=== PATIENT | male | born 1955 | race Caucasian/White ===

== ENCOUNTER 2022-05-17 11:45 | Oncology outpatient (recurring) (ONCR) | payer MEDICARE, SELFPAY | END 2022-05-22 23:59 | disposition home or self-care (01) | PROVIDERS: Visit Provider Internal Medicine Hematology & Oncology | DX: Z53.9 Procedure and treatment not carried out, unspecified reason (principal) ==

== ENCOUNTER 2022-06-21 08:09 | Oncology outpatient (recurring) (ONCR) | payer MEDICARE, SELFPAY | END 2022-06-22 23:59 | disposition home or self-care (01) | PROVIDERS: PCP Family Medicine; Visit Provider Internal Medicine Hematology & Oncology | DX: C61 Malignant neoplasm of prostate (principal); R97.21 Rising PSA following treatment for malignant neoplasm of prostate; M89.9 Disorder of bone, unspecified | CPT/HCPCS: 36415; 84153; 99214 ==

== ENCOUNTER 2022-07-19 10:36 | Oncology outpatient (recurring) (ONCR) | payer MEDICARE, SELFPAY ==
--- NOTE | 2022-07-08 09:39 | N.ONRAD NP_ITS ---
Radiation Oncology Consultation Patient Name: Sabino Murry Date of : 1955 Date of Service: 07/08/2022 Attending Physician: Danial Patterson M.D. Sabino Murry was seen in consultation this morning at the request of Cecily Cheng M.D. for consideration of palliative radiotherapy for the management of metastatic prostate cancer. The patient was diagnosed in July of 2017 following evaluation for massively increasing PSA levels. A robotic laparoscopic prostatectomy performed on September 29, 2017. An adenocarcinoma of the prostate was identified with a [place] score of 8 without high risk features present. Adjuvant radiotherapy with short-term androgen deprivation therapy were administered as a consequence of a persistent PSA level. A PSA level obtained in February of 2022 was 3.6 ng/mL. ADT was offered but the patient declined. A PSMA-PET/CT scan (independently reviewed in [facility]) ordered on June 14, 2022 described marked tracer activity within the left iliac bone with sclerosis noted on CT imaging. A recent PSA level was 10.3 ng/mL. Patient was evaluated for stereotactic ablative body radiotherapy to metastatic deposit. I discussed with Mr. Murry the role for SABR for oligometastatic disease. I also reviewed the SABR-COMET trial that enrolled patients with a controlled primary malignancy and 1-5 metastatic lesions to SABR or palliative standard of care. This radiotherapy modality provided a 22-month median overall survival benefit in comparison to palliative management. I anticipate an ultra-hypofractionated course of stereotactic radiotherapy. A computed tomographic radiotherapy planning will be acquired and co-registered to the patient's PSMA-PET scan to identify the gross tumor volume. The potential toxicities of stereotactic body radiotherapy were canvassed. The patient has verbalized understanding and would like to proceed as recommended. His medical treatment plan was discussed with Cecily Cheng M.D. Signed by: Dr. Danial Patterson 07/08/2022 9:38:17 AM
[2022-07-08] MEDS: leuprolide 22.5 mg Kit IM (10:27)
[2022-07-08] MEDS: denosumab 120 mg SDV SUBCUT (10:27)
[2022-07-08 12:07] VITALS: BP 102/77; PULSE 66; RESP 16; TEMP 36.4; O2SAT 98
--- NOTE | 2022-07-14 | CT_ITS ---
Radiation Therapy Planning CT images; total exam DLP: 1202.75 mGy-cm MTDD
--- NOTE | 2022-07-19 11:28 | N.ONRD TS_ITS ---
SABR Treatment Summary Patient Name: Sabino Murry Date of : 1955 Date of Service: 07/19/2022 Attending Physician: Danial Patterson M.D. Sabino Murry has completed stereotactic ablative body radiotherapy for the management of metastatic prostate cancer. The patient was diagnosed in July of 2017 following evaluation for massively increasing PSA levels. A robotic laparoscopic prostatectomy performed on September 29, 2017. An adenocarcinoma of the prostate was identified with a Daryl score of 8 without high risk features present. Adjuvant radiotherapy with short-term androgen deprivation therapy were administered as a consequence of a persistent PSA level. A PSA level obtained in February of 2022 was 3.6 ng/mL. ADT was offered but the patient declined. A PSMA-PET/CT scan ordered on June 14, 2022 described marked tracer activity within the left iliac bone with sclerosis noted on CT imaging. A recent PSA level was 10.3 ng/mL. Daily radiotherapy was administered on July 19, 2022. A prescribed dose of 20 Gy was delivered in 1 fraction encompassing 1 elapsed day. The sclerotic left ileal lesion was treated utilizing a 3-dimensional conformal radiotherapy plan with MACEDONIAN, LPO, and PA ports. The MACEDONIAN field utilized a 60??? gantry angle with a collimator angle of 0???. The field size measured 4 cm x 4 cm within the X-direction and 4 cm x 4 cm within the Y-direction. The SSD measured 87.2 cm with the field delivering 1058 monitor units. The LPO port employed a gantry angle of 120??? and a collimator angle of 0???. The field size was 4 cm x 4 cm within X-direction and 4 cm x 4 cm within the Y-direction. The SSD was 87.5 cm with the field allocating 593 monitor units. The PA field was designed with a gantry angle of 180??? with a collimator angle of 0???. The measured field size was 4 cm x 4 cm within the X direction and 4 cm x 4 cm within the Y-direction. The measured SSD was 89.2 cm with the field apportioning 937 monitor units. All treatments were performed with the Yotomo linear accelerator and an isocentric technique. The dose was calculated by Anisotropic Analytic Algorithm. A photon energy of 15 MV was prescribed with the plan normalized to deliver 100% of the prescription dose to 100% of the planning target volume. Signed by: Dr. Danial Patterson 07/19/2022 11:26:34 AM
--- NOTE | 2022-07-19 11:37 | ONCRAD TMN_ITS ---
SABR Treatment Management Note Patient Name: Sabino Murry Date of : 1955 Date of Service: 07/19/2022 Attending Physician: Danial Patterson M.D. Sabino Murry is a 67 year-old white male diagnosed with metastatic prostate cancer. The patient was diagnosed in July of 2017 following evaluation for massively increasing PSA levels. A robotic laparoscopic prostatectomy performed on September 29, 2017. An adenocarcinoma of the prostate was identified with a Daryl score of 8 without high risk features present. Adjuvant radiotherapy with short-term androgen deprivation therapy were administered as a consequence of a persistent PSA level. A PSA level obtained in February of 2022 was 3.6 ng/mL. ADT was offered but the patient declined. A PSMA-PET/CT scan ordered on June 14, 2022 described marked tracer activity within the left iliac bone with sclerosis noted on CT imaging. A recent PSA level was 10.3 ng/mL. The patient has received 20 Gy of a prescribed 20 Healy (SABR) delivered with a 3-dimensional conformal radiotherapy plan utilizing DIVEHI, LPO, and PA ports. Upon review of systems, he denied any new symptoms. On physical examination, the patient weighed 256 lbs. His temperature was 97.8 ???F and the blood pressure was 140/83 mmHg. The pulse was 96 bpm and his respiratory rate was 18. There was no erythema within the treatment norman. Stereotactic ablative body radiotherapy was completed today. He will return for post-radiotherapy evaluation in 1 month. Signed by: Dr. Danial Patterson 07/19/2022 11:35:29 AM
== END 2022-07-22 23:59 | disposition home or self-care (01) ==
PROVIDERS: PCP Family Medicine; Visit Provider Radiology Radiation Oncology
DX: C61 Malignant neoplasm of prostate; C79.51 Secondary malignant neoplasm of bone; R97.21 Rising PSA following treatment for malignant neoplasm of prostate; Z51.0 Encounter for antineoplastic radiation therapy
CPT/HCPCS: 77290; 77295; 77300; 77334; 77336; 77373; 77470; 96372; 96402; 99205; J0897; J9217

== ENCOUNTER 2022-08-10 12:29 | Oncology outpatient (recurring) (ONCR) | payer MEDICARE, SELFPAY ==
[2022-08-10 12:48] LABS: Basophils % 0.7 %; Eosinophils # 0.2 10^3/uL (0.0-0.8); Eosinophils % 3.7 %; Hematocrit 41.3 % (42.0-52.0); Hemoglobin 14.1 g/dL (11.7-16.6); Lymphocytes # 1.4 10^3/uL (0.8-4.8); Lymphocytes % 33.7 %; Mean Corpuscular HGB Conc 34.1 g/dL (30.0-36.0); Mean Corpuscular Hemoglobin 32.5 pg (28.0-34.0); Mean Corpuscular Volume 95.2 fl (80-94); Mean Platelet Volume 10.1 fL (7.4-10.4); Monocytes # 0.3 10^3/uL (0.2-0.9); Monocytes % 7.8 %; Neutrophils % 53.9 %; Nucleated Red Blood Cells % 0 %; Platelet Count 209 10^3/cmm (130-400); Red Blood Count 4.34 10^6/uL (4.1-5.3); Red Cell Distribution Width 12.7 % (12.1-15.1); White Blood Count 4.1 10^3/uL (4.0-10.0)
[2022-08-10 13:24] LABS: Alanine Aminotransferase 29 U/L (0-41); Albumin Level 4.4 g/dL (3.5-5.2); Alkaline Phosphatase 76 U/L (40-130); Anion Gap 15.9 (5-19); Aspartate Amino Transferase 24 U/L (0-40); Blood Urea Nitrogen 15 mg/dL (8-23); Calcium 8.9 mg/dL (8.5-10.5); Carbon Dioxide 27 mmol/L (22-29); Chloride 98 mmol/L (98-107); Globulin 2.9 g/dL (1.3-4.6); Glomerular Filtration Rate 83.7 mL/min (90-130); Glucose 166 mg/dL (65-115); Osmolality Calculated 289 mOsm/kg (285-295); Potassium 3.9 mmol/L (3.5-5.1); Sodium 137 mmol/L (136-145); Testosterone Total 2.5 ng/dL (193-740); Total Bilirubin 0.9 mg/dL (0.15-1.2); Total Protein 7.3 g/dL (6.6-8.7)
== END 2022-08-22 23:59 | disposition home or self-care (01) ==
PROVIDERS: Internal Medicine Hematology & Oncology; PCP Family Medicine; Visit Provider Radiology Radiation Oncology
DX: Z79.818 Long term (current) use of other agents affecting estrogen receptors and estrogen levels (principal); C61 Malignant neoplasm of prostate; C79.51 Secondary malignant neoplasm of bone; Z79.899 Other long term (current) drug therapy
CPT/HCPCS: 80053; 84153; 84403; 85025; 99214

== ENCOUNTER 2022-09-02 16:21 | Outpatient (CLI) | payer MEDICARE, SELFPAY ==
--- NOTE | 2022-09-02 | US_ITS ---
WS: [id number] Limited abdomen ultrasound. HISTORY: Umbilical hernia. Ultrasound is directed to the anterior abdominal wall. In the umbilical and periumbilical area no herniation is identified at this time. No peristalsing loo ps of bowel external to the peritoneal cavity. No mass identified. US/US abdomen limited [id number] IMPRESSION: No umbilical or periumbilical hernia identified at this time.
== END 2022-09-02 16:22 | disposition home or self-care (01) ==
LOC: RAD 16:21
PROVIDERS: PCP Family Medicine; Visit Provider Family Medicine
DX: K42.9 Umbilical hernia without obstruction or gangrene (principal)
CPT/HCPCS: 76705

== ENCOUNTER 2022-09-30 08:13 | Oncology outpatient (recurring) (ONCR) | payer MEDICARE, SELFPAY ==
[2022-09-30 09:03] LABS: Basophils # 0.1 10^3/uL (0.0-0.1); Basophils % 0.9 %; Eosinophils # 0.4 10^3/uL (0.0-0.8); Eosinophils % 6.1 %; Hematocrit 40.4 % (42.0-52.0); Hemoglobin 13.4 g/dL (11.7-16.6); Lymphocytes # 1.8 10^3/uL (0.8-4.8); Lymphocytes % 28.6 %; Mean Corpuscular HGB Conc 33.2 g/dL (30.0-36.0); Mean Corpuscular Hemoglobin 32.4 pg (28.0-34.0); Mean Corpuscular Volume 97.6 fl (80-94); Mean Platelet Volume 10.4 fL (7.4-10.4); Monocytes # 0.6 10^3/uL (0.2-0.9); Monocytes % 9.1 %; Neutrophils # 3.52 10^3/uL (1.8-7.7); Nucleated Red Blood Cells % 0 %; Platelet Count 269 10^3/cmm (130-400); Red Blood Count 4.14 10^6/uL (4.1-5.3); White Blood Count 6.4 10^3/uL (4.0-10.0)
[2022-09-30 09:35] LABS: Alanine Aminotransferase 28 U/L (0-41); Albumin Level 4.2 g/dL (3.5-5.2); Alkaline Phosphatase 75 U/L (40-130); Anion Gap 15.9 (5-19); Aspartate Amino Transferase 23 U/L (0-40); Blood Urea Nitrogen 17 mg/dL (8-23); Calcium 9.6 mg/dL (8.5-10.5); Carbon Dioxide 28 mmol/L (22-29); Chloride 101 mmol/L (98-107); Globulin 3.3 g/dL (1.3-4.6); Glomerular Filtration Rate 95.8 mL/min (90-130); Glucose 140 mg/dL (65-115); Osmolality Calculated 296 mOsm/kg (285-295); Potassium 3.9 mmol/L (3.5-5.1); Prostate Specific Antigen 0.082 ng/mL (0-4); Sodium 141 mmol/L (136-145); Testosterone Total 2.5 ng/dL (193-740); Total Bilirubin 0.4 mg/dL (0.15-1.2); Total Protein 7.5 g/dL (6.6-8.7)
[2022-09-30] MEDS: denosumab 120 mg SDV SUBCUT (09:54)
[2022-09-30] MEDS: leuprolide 22.5 mg Kit IM (09:55)
== END 2022-10-22 23:59 | disposition home or self-care (01) ==
PROVIDERS: Internal Medicine Hematology & Oncology; PCP Family Medicine; Visit Provider Radiology Radiation Oncology
DX: C61 Malignant neoplasm of prostate (principal); C79.51 Secondary malignant neoplasm of bone; Z79.818 Long term (current) use of other agents affecting estrogen receptors and estrogen levels; Z79.899 Other long term (current) drug therapy; Z92.3 Personal history of irradiation; R73.9 Hyperglycemia, unspecified
CPT/HCPCS: 80053; 84153; 84403; 85025; 96372; 96402; 99214; J0897; J9217

== ENCOUNTER → 2022-12-26 11:58 | Outpatient (BNVA) | payer MEDICARE, SELFPAY | PROVIDERS: PCP Family Medicine; Visit Provider Internal Medicine Pulmonary Disease | DX: G47.33 Obstructive sleep apnea (adult) (pediatric) (principal); J45.909 Unspecified asthma, uncomplicated; J82.83 Eosinophilic asthma | CPT/HCPCS: 99204 ==

== ENCOUNTER 2023-01-06 08:25 | Oncology outpatient (recurring) (ONCR) | payer MEDICARE, SELFPAY ==
[2023-01-06 08:48] LABS: Basophils # 0.1 10^3/uL (0.0-0.1); Basophils % 1.1 %; Eosinophils # 0.5 10^3/uL (0.0-0.8); Hematocrit 35.2 % (42.0-52.0); Hemoglobin 11.4 g/dL (11.7-16.6); Lymphocytes # 1.7 10^3/uL (0.8-4.8); Lymphocytes % 36.1 %; Mean Corpuscular HGB Conc 32.4 g/dL (30.0-36.0); Mean Corpuscular Hemoglobin 31.6 pg (28.0-34.0); Mean Corpuscular Volume 97.5 fl (80-94); Mean Platelet Volume 9.6 fL (7.4-10.4); Monocytes # 0.5 10^3/uL (0.2-0.9); Monocytes % 9.8 %; Neutrophils # 1.99 10^3/uL (1.8-7.7); Neutrophils % 42.6 %; Nucleated Red Blood Cells % 0 %; Platelet Count 285 10^3/cmm (130-400); Red Blood Count 3.61 10^6/uL (4.1-5.3); Red Cell Distribution Width 14.1 % (12.1-15.1); White Blood Count 4.7 10^3/uL (4.0-10.0)
[2023-01-06 09:13] LABS: Alanine Aminotransferase 17 U/L (0-41); Albumin Level 4.1 g/dL (3.5-5.2); Alkaline Phosphatase 92 U/L (40-130); Aspartate Amino Transferase 21 U/L (0-40); Blood Urea Nitrogen 18 mg/dL (8-23); Calcium 8.8 mg/dL (8.5-10.5); Carbon Dioxide 27 mmol/L (22-29); Chloride 106 mmol/L (98-107); Globulin 2.9 g/dL (1.3-4.6); Glomerular Filtration Rate 111.8 mL/min (90-130); Glucose 134 mg/dL (65-115); Osmolality Calculated 304 mOsm/kg (285-295); Sodium 145 mmol/L (136-145); Testosterone Total 2.5 ng/dL (193-740); Total Bilirubin 0.4 mg/dL (0.15-1.2)
[2023-01-06 09:21] LABS: Prostate Specific Antigen < 0.014 ng/mL (0-4)
[2023-01-06 09:22] LABS: Anion Gap 16.1 (5-19); Potassium 4.1 mmol/L (3.5-5.1)
[2023-01-06 12:28] LABS: Ferritin 237 ng/mL (30-400); Iron 46 ug/dL (59-158); Percent Saturation 17.1 % (20-50); Total Iron Binding Capacity 269 mcg/dl; Unsaturated Iron Binding 223 ug/dL (112-347)
[2023-01-06] MEDS: leuprolide 22.5 mg Kit IM (12:30)
[2023-01-06] MEDS: denosumab 120 mg SDV SUBCUT (12:30)
[2023-01-06 12:56] LABS: Vitamin B12 > 2000 pg/mL (232-1245)
== END 2023-01-20 23:59 | disposition home or self-care (01) ==
PROVIDERS: Internal Medicine Hematology & Oncology; PCP Family Medicine; Visit Provider Radiology Radiation Oncology
DX: C61 Malignant neoplasm of prostate (principal); C79.51 Secondary malignant neoplasm of bone; Z96.651 Presence of right artificial knee joint; Z79.899 Other long term (current) drug therapy; Z79.818 Long term (current) use of other agents affecting estrogen receptors and estrogen levels
CPT/HCPCS: 36415; 80053; 82607; 82728; 83540; 83550; 84153; 84403; 85025; 96372; 99214; J0897; J9217

== ENCOUNTER 2023-02-14 14:09 | Oncology outpatient (recurring) (ONCR) | payer MEDICARE, SELFPAY ==
[2023-02-14 15:37] LABS: Basophils % 0.8 %; Eosinophils # 0.4 10^3/uL (0.0-0.8); Hematocrit 36.2 % (42.0-52.0); Hemoglobin 11.8 g/dL (11.7-16.6); Lymphocytes # 1.6 10^3/uL (0.8-4.8); Mean Corpuscular HGB Conc 32.6 g/dL (30.0-36.0); Mean Corpuscular Hemoglobin 30.8 pg (28.0-34.0); Mean Corpuscular Volume 94.5 fl (80-94); Mean Platelet Volume 9.8 fL (7.4-10.4); Monocytes # 0.6 10^3/uL (0.2-0.9); Monocytes % 10.6 %; Neutrophils # 2.66 10^3/uL (1.8-7.7); Neutrophils % 51.4 %; Nucleated Red Blood Cells % 0 %; Platelet Count 229 10^3/cmm (130-400); Red Blood Count 3.83 10^6/uL (4.1-5.3); White Blood Count 5.2 10^3/uL (4.0-10.0)
[2023-02-14 16:06] LABS: Ferritin 150 ng/mL (30-400); Iron 63 ug/dL (59-158); Total Iron Binding Capacity 252 mcg/dl; Unsaturated Iron Binding 189 ug/dL (112-347)
== END 2023-02-19 23:59 | disposition home or self-care (01) ==
PROVIDERS: Nurse Practitioner Family; PCP Family Medicine; Visit Provider Radiology Radiation Oncology
DX: C79.51 Secondary malignant neoplasm of bone (principal); C61 Malignant neoplasm of prostate; Z79.899 Other long term (current) drug therapy; Z79.818 Long term (current) use of other agents affecting estrogen receptors and estrogen levels; Z92.3 Personal history of irradiation; D50.9 Iron deficiency anemia, unspecified
CPT/HCPCS: 36415; 82728; 83540; 83550; 85025; 99213

== ENCOUNTER 2023-03-31 07:50 | Oncology outpatient (recurring) (ONCR) | payer MEDICARE, SELFPAY ==
[2023-03-31 08:46] VITALS: BP 122/74; PULSE 96; RESP 18; TEMP 35.8; O2SAT 98
[2023-03-31 09:04] LABS: Basophils % 0.8 %; Eosinophils # 0.3 10^3/uL (0.0-0.8); Eosinophils % 6.2 %; Hematocrit 35.9 % (42.0-52.0); Hemoglobin 11.8 g/dL (11.7-16.6); Lymphocytes # 1.6 10^3/uL (0.8-4.8); Lymphocytes % 31.4 %; Mean Corpuscular HGB Conc 32.9 g/dL (30.0-36.0); Mean Corpuscular Hemoglobin 30.5 pg (28.0-34.0); Mean Corpuscular Volume 92.8 fl (80-94); Mean Platelet Volume 9.5 fL (7.4-10.4); Monocytes # 0.5 10^3/uL (0.2-0.9); Monocytes % 9.7 %; Neutrophils # 2.65 10^3/uL (1.8-7.7); Neutrophils % 51.7 %; Nucleated Red Blood Cells % 0 %; Platelet Count 211 10^3/cmm (130-400); Red Blood Count 3.87 10^6/uL (4.1-5.3); White Blood Count 5.1 10^3/uL (4.0-10.0)
[2023-03-31 09:42] LABS: Alanine Aminotransferase 28 U/L (0-41); Albumin Level 4.2 g/dL (3.5-5.2); Alkaline Phosphatase 69 U/L (40-130); Aspartate Amino Transferase 24 U/L (0-40); Blood Urea Nitrogen 17 mg/dL (8-23); Calcium 8.6 mg/dL (8.5-10.5); Carbon Dioxide 27 mmol/L (22-29); Chloride 101 mmol/L (98-107); Globulin 2.8 g/dL (1.3-4.6); Glomerular Filtration Rate 111.5 mL/min (90-130); Glucose 142 mg/dL (65-115); Osmolality Calculated 292 mOsm/kg (285-295); Sodium 139 mmol/L (136-145); Total Bilirubin 0.6 mg/dL (0.15-1.2)
[2023-03-31 09:43] LABS: Prostate Specific Antigen < 0.014 ng/mL (0-4)
[2023-03-31 10:07] LABS: Testosterone Total < 2.5 ng/dL (193-740)
[2023-03-31] MEDS: denosumab 120 mg SDV SUBCUT (11:27)
[2023-03-31] MEDS: leuprolide 22.5 mg Kit IM (11:30)
[2023-03-31 11:35] VITALS: BP 127/68; PULSE 94; RESP 18; TEMP 35.8; O2SAT 96
== END 2023-04-21 23:59 | disposition home or self-care (01) ==
PROVIDERS: Internal Medicine Hematology & Oncology; PCP Family Medicine; Visit Provider Radiology Radiation Oncology
DX: C79.51 Secondary malignant neoplasm of bone (principal); C61 Malignant neoplasm of prostate; Z96.651 Presence of right artificial knee joint; Z79.899 Other long term (current) drug therapy; Z79.818 Long term (current) use of other agents affecting estrogen receptors and estrogen levels; Z92.3 Personal history of irradiation
CPT/HCPCS: 36415; 80053; 84153; 84403; 85025; 96372; 96402; 99214; J0897; J9217

== ENCOUNTER → 2023-05-18 08:47 | Outpatient (BNVA) | payer MEDICARE, SELFPAY | PROVIDERS: PCP Family Medicine; Visit Provider Internal Medicine Pulmonary Disease | DX: G47.30 Sleep apnea, unspecified (principal); J45.909 Unspecified asthma, uncomplicated | CPT/HCPCS: 99214 ==

== ENCOUNTER → 2023-11-16 10:45 | Outpatient (BNVA) | payer MEDICARE, SELFPAY | PROVIDERS: PCP Family Medicine; Visit Provider Internal Medicine Pulmonary Disease | DX: G47.30 Sleep apnea, unspecified (principal); J45.909 Unspecified asthma, uncomplicated | CPT/HCPCS: 99214 ==

== ENCOUNTER 2025-06-05 10:48 | Oncology outpatient (recurring) (ONCR) | payer MEDICARE, SELFPAY ==
[2025-06-05 11:59] LABS: Hematocrit 37.7 % (37-53); Hemoglobin 12.60 g/dL (11.27-16.99); Mean Corpuscular HGB Conc 33.4 g/dL (30-55); Mean Corpuscular Hemoglobin 31.0 pg (27-33); Mean Corpuscular Volume 92.6 fl (82-101); Nucleated Red Blood Cells % 0 %; Platelet Count 208 10^3/cmm (157-399); Red Blood Count 4.07 10^6/uL (3.85-5.65); White Blood Count 4.32 10^3/uL (3.29-11.43)
[2025-06-05 12:24] LABS: Alanine Aminotransferase 16 U/L (0-41); Albumin Level 4.0 g/dL (3.5-5.2); Alkaline Phosphatase 96 U/L (40-130); Anion Gap 15.3 (5-19); Aspartate Amino Transferase 21 U/L (0-40); Blood Urea Nitrogen 14 mg/dL (8-23); Calcium 8.8 mg/dL (8.5-10.5); Carbon Dioxide 26 mmol/L (22-29); Chloride 103 mmol/L (98-107); Creatinine Clr Calc Pharmacy 104.4461; Globulin 3.1 g/dL (1.3-4.6); Glucose 141 mg/dL (65-115); Osmolality Calculated 293 mOsm/kg (285-295); Potassium 4.3 mmol/L (3.5-5.1); Prostate Specific Antigen 3.300 ng/mL (0-4); Sodium 140 mmol/L (136-145); Total Protein 7.1 g/dL (6.6-8.7)
== END 2025-06-22 23:59 | disposition home or self-care (01) ==
LOC: ONCMED 10:49
PROVIDERS: PCP Family Medicine; Visit Provider Internal Medicine
DX: C61 Malignant neoplasm of prostate (principal); D64.9 Anemia, unspecified; Z92.3 Personal history of irradiation; Z85.830 Personal history of malignant neoplasm of bone
CPT/HCPCS: 36415; 80053; 83615; 84153; 84403; 85025; 99213

== ENCOUNTER 2025-06-25 09:20 | Oncology outpatient (recurring) (ONCR) | payer MEDICARE, SELFPAY | END 2025-07-22 23:59 | disposition home or self-care (01) | PROVIDERS: PCP Family Medicine; Visit Provider Internal Medicine | DX: C61 Malignant neoplasm of prostate (principal); Z85.830 Personal history of malignant neoplasm of bone; Z92.3 Personal history of irradiation; Z98.890 Other specified postprocedural states | CPT/HCPCS: 99213 ==